=== PATIENT | female | born 1985 | race African-American/Black ===

== ENCOUNTER 2017-03-03 20:05 | Emergency (ER) | payer BC, MEDICAID ==
[~2017-03-03] VITALS: Ht 162.6 cm; Wt 61.7 kg
[2017-03-03 20:20] VITALS: BP 102/66
[2017-03-03 21:20] LABS: APPEARANCE,URINE CLOUDY; KETONES,URINE NEGATIVE (NEGATIVE); LEUKOCYTE ESTERASE ,URINE 3+ (NEGATIVE); NITRITE,URINE NEGATIVE (NEGATIVE); PH,URINE 7 (4.5-8.0); PROTEIN,URINE 2+ (NEGATIVE); UROBILINOGEN,URINE NORMAL MG/DL (0.0-1.0)
[2017-03-03] MEDS ORDERED: KEFLEX500 MG ORAL (21:26)
[2017-03-03] MEDS ORDERED: IBUPROFEN600 MG ORAL (21:26)
[2017-03-03 21:29] LABS: BACTERIA,URINE MANY /HPF; SQUAMOUS EPITHELIAL CELL,UR MANY /LPF (NONE/OCC); TRICHOMONAS,URINE FEW /HPF; WBC,URINE 60-80 /HPF (0 - 2)
[2017-03-03] MEDS ORDERED: Cephalexin 500mg cap ORAL ONE (22:00)
[2017-03-03] MEDS ORDERED: metroNIDAZOLE 500mg tab ORAL ONE (22:15)
[2017-03-03 22:26] VITALS: BP 106/68
[2017-03-03 22:27] VITALS: BP 106/68
--- NOTE | 2017-03-04 09:54 | Diagnostic Imaging Report ---
Indications: Shortness of Technique: Spiral acquisitions obtained through the brain. Angled axial and coronal 5 x 5 mm slices were reconstructed. Total dose length product 1340 mGycm. CTDI vol(s) 7 mGy. 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 No acute hemorrhage or edema. No mass effect or midline shift. But may be a large phlebolith is seen in the straight sinus. Normal majano-white differentiation. Intact calvarium. Visualized orbits and sinuses are unremarkable. 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 The CT scanner at [facility] is accredited by the [employer] and the scans are performed using protocols designed to limit radiation exposure to as low as reasonably achievable to attain images of sufficient resolution adequate for diagnostic evaluation.
--- NOTE | 2017-03-04 11:15 | Diagnostic Imaging Report ---
Indication: PAIN Technique: One view of the chest Comparison: none Findings: Lungs and pleural spaces are clear. Heart size is normal Impression: No acute process
--- NOTE | 2017-03-04 13:19 | Emergency Room Report ---
History of Present Illness General Chief Complaint: Headache Source: Patient Present Illness HPI Patient is a 31-year-old female presented after having increased headache for the past 3 days. Patient gradual onset of symptoms. The patient had increased cough as well as headache which he describes as throbbing sensation. She denied any fever. She denied neck stiffness. The patient states he does not usually get headaches. She's not had prior imaging. She denies being . Allergies: Coded Allergies: No Known Allergies (Unverified , 03/03/17) Patient History Past Medical History: see triage record Last Menstrual Period: 02/28/17 Now: No Reviewed Nursing Documentation: PMH: Agreed, PSxH: Agreed Nursing Documentation-PMH Past Medical History: No Stated History Review of Systems All Other Systems: negative except mentioned in HPI Physical Exam Vital Signs Date Time Temp Pulse Resp B/P Pulse Ox O2 Delivery O2 Flow Rate FiO2 03/03/17 20:16 97.9 76 16 102/66 99 Room Air Sp02 EP Interpretation: reviewed, normal General Appearance: normal inspection, well appearing, no apparent distress, alert, GCS 15, non-toxic Head: atraumatic ENT: normal ENT inspection, hearing grossly normal, normal voice Neck: normal inspection, full range of motion, supple, no bony tend Respiratory: normal inspection, lungs clear, normal breath sounds, no respiratory distress, no retraction, no wheezing Cardiovascular #1: regular rate, rhythm, no edema Gastrointestinal: normal inspection, normal bowel sounds, non tender, soft, no guarding, no hernia Genitourinary: no CVA tenderness Musculoskeletal: normal inspection, back normal, normal range of motion Neurologic: normal inspection, alert, oriented x3, responsive, 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 Differential diagnoses included but was not limited to skull fracture, subarachnoid hemorrhage, meningitis, aneurysm, mass lesion, intracranial hemorrhage. Urinalysis showed evidence of a urinary tract infection as well as Trichomonas. 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 There is no acute hemorrhage noted. The patient was given oral antibiotics.The patient is advised to follow up with primary care doctor in 1-2 days. Patient is advised to return if any worsening condition or if any changes in status that are concerning. Labs Test 03/03/17 21:00 Urine Color Pale yellow Urine Appearance Cloudy Urine pH 7 (4.5-8.0) Urine Specific [place] 1.010 (1.005-1.035) Urine Protein 2+ (NEGATIVE) Urine Glucose (UA) Negative (NEGATIVE) Urine Ketones Negative (NEGATIVE) Urine Occult Blood 3+ (NEGATIVE) Urine Nitrite Negative (NEGATIVE) Urine Bilirubin Negative (NEGATIVE) Urine Urobilinogen Normal MG/DL (0.0-1.0) Urine Leukocyte Esterase 3+ (NEGATIVE) Urine RBC 10-15 /HPF (0 - 2) Urine WBC 60-80 /HPF (0 - 2) Urine Squamous Epithelial Cells Many /LPF (NONE/OCC) Urine Bacteria Many /HPF (NONE) Urine Trichomonas Few /HPF (NONE) Urine HCG, Qualitative Negative Last Vital Signs Date Time Temp Pulse Resp B/P Pulse Ox O2 Delivery O2 Flow Rate FiO2 03/03/17 22:27 98.1 79 15 106/68 99 Room Air Status: improved Disposition: HOME, SELF-CARE Condition: Improved Scripts Ibuprofen* (MOTRIN*) 600 Mg Tablet 600 MG ORAL Q8H Y for For Pain, #30 TAB 0 Refills Prov: Gary Mascorro 03/03/17 Cephalexin* (KEFLEX*) 500 Mg Capsule 500 MG ORAL Q6H, #28 CAP 0 Refills Prov: Gary Mascorro 03/03/17 Patient Instructions: Sinus Headache, [id number], Acute Urinary Retention, Female, [id number] Gary Mascorro March 04, 2017 13:19
== END 2017-03-03 22:29 | disposition home or self-care (01) ==
LOC: EMR 20:35
DX: N39.0 Urinary tract infection, site not specified (principal); R51 Headache; R05 Cough
CPT/HCPCS: 70450; 71010; 81003; 81025; 87086; 99284